=== PATIENT | male | born 1965 | race Asian ===

== ENCOUNTER → 2017-02-12 | Outpatient (CLI) | payer OTHER ==
[~2017-02-12] MED LIST: OMNIPAQUE 350 MG/ML, 100ML BOTTLE ONE
== END | disposition home or self-care (01) ==
LOC: CFH 11:02
PROVIDERS: ATTEND Internal Medicine
DX: C20 Malignant neoplasm of rectum (principal); N28.1 Cyst of kidney, acquired; K62.89 Other specified diseases of anus and rectum
CPT/HCPCS: 71260; 74177; Q9967

== ENCOUNTER 2017-08-16 13:23 | Inpatient (IN) | payer OTHER ==
[~2017-08-16] VITALS: Ht 167.6 cm; Wt 74.6 kg
[2017-08-16] MEDS ORDERED: SODIUM CHLORIDE 0.9% 1,000 ML IV ONE ×2 (13:37→15:46)
[2017-08-16] MEDS ORDERED: SODIUM CHLORIDE FLUSH 10ML SYR IVF ONE (14:00)
[2017-08-16] MEDS ORDERED: HYDROmorphone 1 MG/ML, 1ML IVPush PRN ×2 (14:00→16:00)
[2017-08-16] MEDS ORDERED: SODIUM CHLORIDE 0.9% 1,000ML IVBOLUS ONE (14:00)
[2017-08-16] MEDS ORDERED: ONDANSETRON 2MG/ML, 2ML IVPush ONE (14:00)
[2017-08-16] MEDS ORDERED: HYDROmorphone 1 MG/ML, 1ML ONE (14:09)
[2017-08-16] MEDS ORDERED: ONDANSETRON 2MG/ML, 2ML ONE (14:09)
[2017-08-16 15:00] LABS: HEMATOCRIT 29.8 % (39.2-51.8); HEMOGLOBIN 9.9 g/dL (13.7-18.0)
[2017-08-16 15:09] LABS: BLOOD UREA NITROGEN 8 mg/dL (7-18)
[2017-08-16 15:13] LABS: ASPARTATE AMINO TRANSFERASE 47 U/L (15-37)
[2017-08-16] MEDS ORDERED: PANTOPRAZOLE 80 MG in SODIUM CHLORIDE 0.9% 50 ML IVPB ONE (15:21)
[2017-08-16] MEDS: PANTOPRAZOLE 80 MG in SODIUM CHLORIDE 0.9% 100 ML IV SCH ×3 (15:35→17:11)
[2017-08-16] MEDS ORDERED: morphine SULFATE 10 MG/ML, 1ML IVPush PRN (16:00)
[2017-08-16] MEDS ORDERED: SODIUM CHLORIDE FLUSH 10ML SYR IVF PRN (16:00)
[2017-08-16] MEDS ORDERED: ONDANSETRON 2MG/ML, 2ML IVPush PRN ×2 (16:00)
[2017-08-16] MEDS: NS + 20MEQ KCL 1,000 ML IV SCH (16:26)
[2017-08-16 17:08] VITALS: BP 123/73
[2017-08-16] MEDS: HYDROmorphone 2 MG/ML, 1ML IVPush PRN ×2 (18:16→21:46)
[2017-08-16] MEDS ORDERED: OXYC1TAB7 PO (18:43)
[2017-08-16] MEDS ORDERED: SENN8.6T12 PO (18:45)
[2017-08-16 20:30] VITALS: BP_SYST 102; BP_SYST 121; BP_DIAS 60; BP_DIAS 72
[2017-08-16 23:35] LABS: HEMATOCRIT 28.1 % (39.2-51.8); HEMOGLOBIN 9.4 g/dL (13.7-18.0); WHITE BLOOD COUNT 7.1 x10^3/uL (3.4-10)
[2017-08-17] MEDS: HYDROmorphone 2 MG/ML, 1ML IVPush PRN ×4 (01:20→14:03)
[2017-08-17] MEDS: PANTOPRAZOLE 80 MG in SODIUM CHLORIDE 0.9% 100 ML IV SCH ×3 (01:22→11:54)
[2017-08-17] MEDS: NS + 20MEQ KCL 1,000 ML IV SCH ×4 (02:05→22:18)
[2017-08-17 02:09] VITALS: BP 116/73
[2017-08-17 05:10] LABS: HEMATOCRIT 28.5 % (39.2-51.8); HEMOGLOBIN 9.6 g/dL (13.7-18.0); WHITE BLOOD COUNT 6.6 x10^3/uL (3.4-10)
[2017-08-17 05:18] LABS: BLOOD UREA NITROGEN 7 mg/dL (7-18)
[2017-08-17 06:37] VITALS: BP 117/75
[2017-08-17 12:57] VITALS: BP 122/77
[2017-08-17] MEDS ORDERED: POLYETHYLENE GLYCOL 17 GM PACKET NG ONE (16:30)
[2017-08-17] MEDS ORDERED: POLYETHYLENE GLYCOL 17 GM PACKET PO ONE (17:00)
[2017-08-17] MEDS: SENNA/DOCUSATE TABLET PO SCH (17:09)
[2017-08-17] MEDS: MAGNESIUM HYDROXIDE 8%, 30ML UDC PO PRN (17:09)
[2017-08-17 20:00] VITALS: BP 129/72
[2017-08-18] MEDS: HYDROmorphone 2 MG/ML, 1ML IVPush PRN ×6 (01:11→21:45)
[2017-08-18 02:00] VITALS: BP 135/77
[2017-08-18 05:44] LABS: HEMOGLOBIN 10.5 g/dL (13.7-18.0)
[2017-08-18 07:58] VITALS: BP 134/70
[2017-08-18] MEDS: OMEPRAZOLE 20 MG CAPSULE.DR PO SCH (08:31)
[2017-08-18] MEDS: SENNA/DOCUSATE TABLET PO SCH (08:31)
[2017-08-18 13:19] VITALS: BP 139/77
[2017-08-18] MEDS: MAGNESIUM HYDROXIDE 8%, 30ML UDC PO PRN (17:38)
[2017-08-18] MEDS: NS + 20MEQ KCL 1,000 ML IV SCH (19:03)
[2017-08-18 20:53] VITALS: BP 129/72
[2017-08-19] MEDS: HYDROmorphone 2 MG/ML, 1ML IVPush PRN ×4 (00:50→11:41)
[2017-08-19 03:45] VITALS: BP 132/79
[2017-08-19] MEDS ORDERED: POLYETHYLENE GLYCOL 17 GM PACKET PO ONE (08:00)
[2017-08-19 09:51] VITALS: BP 128/79
[2017-08-19] MEDS: OMEPRAZOLE 20 MG CAPSULE.DR PO SCH (10:05)
[2017-08-19] MEDS: morphine SULFATE 60 MG TABLET.ER PO SCH ×2 (10:06→21:30)
[2017-08-19] MEDS: SENNA/DOCUSATE TABLET PO SCH (10:06)
[2017-08-19] MEDS: NS + 20MEQ KCL 1,000 ML IV SCH ×2 (10:07→23:38)
[2017-08-19 12:46] LABS: HEMOGLOBIN 10.3 g/dL (13.7-18.0); WHITE BLOOD COUNT 8.3 x10^3/uL (3.4-10)
[2017-08-19 15:03] VITALS: BP 145/79
[2017-08-19] MEDS: DEXAMETHASONE 1 MG TABLET PO SCH (17:51)
[2017-08-19 20:00] VITALS: BP 138/81
[2017-08-20 00:40] VITALS: BP 128/77
[2017-08-20] MEDS: morphine SULFATE 15 MG TAB.IR PO PRN ×3 (01:50→13:10)
[2017-08-20 05:54] LABS: HEMATOCRIT 30.7 % (39.2-51.8); HEMOGLOBIN 10.2 g/dL (13.7-18.0); WHITE BLOOD COUNT 8.4 x10^3/uL (3.4-10)
[2017-08-20 06:12] LABS: BLOOD UREA NITROGEN 5 mg/dL (7-18)
[2017-08-20] MEDS ORDERED: morphine SULFATE 15 MG TAB.IR PO PRN (06:30)
[2017-08-20] MEDS ORDERED: LIDOCAINE 2%, 20ML ONE (07:50)
[2017-08-20 07:52] VITALS: BP 135/80
[2017-08-20] MEDS ORDERED: FENTANYL PF 100 MCG/2ML ONE (07:55)
[2017-08-20] MEDS ORDERED: NALOXONE 1 MG/ML, 2ML ONE (07:55)
[2017-08-20] MEDS ORDERED: FLUMAZENIL 0.1 MG/1 ML, 5ML ONE (07:55)
[2017-08-20] MEDS ORDERED: MIDAZOLAM 1 MG/ML, 5ML ONE (07:55)
[2017-08-20] MEDS ORDERED: CEFAZOLIN PMX 1GM/50ML 50 ML ONE (08:34)
[2017-08-20] MEDS: morphine SULFATE 60 MG TABLET.ER PO SCH ×2 (11:11→23:11)
[2017-08-20] MEDS: DEXAMETHASONE 1 MG TABLET PO SCH ×2 (11:11→17:32)
[2017-08-20] MEDS: OMEPRAZOLE 20 MG CAPSULE.DR PO SCH (11:12)
[2017-08-20] MEDS: SENNA/DOCUSATE TABLET PO SCH (11:12)
[2017-08-20] MEDS: POLYETHYLENE GLYCOL 17 GM PACKET PO SCH ×2 (11:12→20:48)
[2017-08-20] MEDS ORDERED: SODIUM CHLORIDE 0.9% 1,000 ML IV SCH ×2 (12:00→14:00)
[2017-08-20 14:16] VITALS: BP 118/78
[2017-08-20 17:12] LABS: BLOOD UREA NITROGEN 7 mg/dL (7-18)
[2017-08-20 19:25] VITALS: BP 121/72
[2017-08-20] MEDS: NS + 20MEQ KCL 1,000 ML IV SCH (20:48)
[2017-08-21] MEDS: morphine SULFATE 15 MG TAB.IR PO PRN ×2 (01:43→05:03)
[2017-08-21 01:45] VITALS: BP 117/75
[2017-08-21] MEDS: OMEPRAZOLE 20 MG CAPSULE.DR PO SCH (08:15)
[2017-08-21] MEDS: DEXAMETHASONE 1 MG TABLET PO SCH ×2 (08:15→17:00)
[2017-08-21] MEDS: POLYETHYLENE GLYCOL 17 GM PACKET PO SCH (08:25)
[2017-08-21] MEDS: SENNA/DOCUSATE TABLET PO SCH (08:25)
[2017-08-21 09:28] VITALS: BP 124/72
[2017-08-21] MEDS: NS + 20MEQ KCL 1,000 ML IV SCH (09:48)
[2017-08-21] MEDS: morphine SULFATE 60 MG TABLET.ER PO SCH (11:11)
[2017-08-21] MEDS ORDERED: MAGN400O7 PO (13:21)
[2017-08-21] MEDS ORDERED: MORP60TA PO (13:21)
[2017-08-21] MEDS ORDERED: OMEP-110 PO (13:21)
[2017-08-21] MEDS ORDERED: DEXA1TAB5 PO (13:21)
[2017-08-21] MEDS ORDERED: POLY17PO5 PO (13:21)
[2017-08-21] MEDS ORDERED: SENN1TAB7 PO (13:21)
[2017-08-21] MEDS ORDERED: MORP15TA PO (13:21)
[2017-08-21 13:38] VITALS: BP 116/64
[2017-08-21] MEDS ORDERED: morphine SULFATE 15 MG TAB.IR PO PRN (15:30)
== END 2017-08-21 22:21 | disposition home or self-care (01) | DRG 948 ==
LOC: ED 13:26 → EDIP 15:35 → 4WST 16:44
PROVIDERS: ADMIT Family Medicine; ATTEND Family Medicine
PROC: 02HV33Z Insertion of Infusion Device into Superior Vena Cava, Percutaneous Approach (ICD-10-PCS; principal; 2017-08-20)
PROC: B5181ZA Fluoroscopy of Superior Vena Cava using Low Osmolar Contrast, Guidance (ICD-10-PCS; 2017-08-20)
DX: G89.3 Neoplasm related pain (acute) (chronic) (principal); C77.5 Secondary and unspecified malignant neoplasm of intrapelvic lymph nodes; C79.51 Secondary malignant neoplasm of bone; E22.2 Syndrome of inappropriate secretion of antidiuretic hormone; D62 Acute posthemorrhagic anemia; C20 Malignant neoplasm of rectum; D63.8 Anemia in other chronic diseases classified elsewhere; G47.00 Insomnia, unspecified; K21.9 Gastro-esophageal reflux disease without esophagitis; K59.00 Constipation, unspecified; Z51.5 Encounter for palliative care; Z93.3 Colostomy status
CPT/HCPCS: 36415; 36561; 74022; 76937; 77001; 80048; 80053; 81003; 83935; 84300; 85025; 86850; 86900; 96374; 99156; 99157; C1894; J0690; J1170; J2250; J2405; J3010; J3480; J3490; C1788; C9113; J1642; J2270; J2310; J7030

== ENCOUNTER → 2017-08-16 | Outpatient (CLI) | payer OTHER ==
[~2017-08-16] MED LIST changes: -OMNIPAQUE 350 MG/ML, 100ML BOTTLE ONE; +OXYC1TAB7 PO; +SENN8.6T12 PO
== END | disposition home or self-care (01) ==
LOC: RAD 09:07
PROVIDERS: ATTEND Internal Medicine
DX: R59.0 Localized enlarged lymph nodes (principal); J98.11 Atelectasis; N32.9 Bladder disorder, unspecified; K59.00 Constipation, unspecified; N28.1 Cyst of kidney, acquired; K82.0 Obstruction of gallbladder; M89.8X8 Other specified disorders of bone, other site; C20 Malignant neoplasm of rectum
CPT/HCPCS: 71260; 74177

== ENCOUNTER → 2017-08-16 | Outpatient (CLI) | payer OTHER ==
[~2017-08-16] MED LIST changes: +CIPR500T87 PO; +DEXA1TAB5 PO; +LACT10SO28 PO; +LUBI8CAP4 PO; +MAGN400O7 PO; +METR500T8 PO; +MORP15TA PO; +MORP60TA PO; +OMEP-110 PO; +OMNIPAQUE 350 MG/ML, 100ML BOTTLE ONE; +ONDA4TAB13 PO; +POLY17PO5 PO; +SENN1TAB7 PO
== END | disposition home or self-care (01) ==
LOC: RAD 09:06
PROVIDERS: ATTEND Internal Medicine
DX: C79.51 Secondary malignant neoplasm of bone (principal); C20 Malignant neoplasm of rectum
CPT/HCPCS: 78306; A9503; Q9967

== ENCOUNTER 2017-08-26 03:18 | Inpatient (IN) | payer OTHER ==
[~2017-08-26] VITALS: Ht 167.6 cm; Wt 80.0 kg
[~2017-08-26 03:18] MED LIST changes: -CIPR500T87 PO; -LACT10SO28 PO; -LUBI8CAP4 PO; -METR500T8 PO; -OMNIPAQUE 350 MG/ML, 100ML BOTTLE ONE; -ONDA4TAB13 PO
[2017-08-26] MEDS ORDERED: ONDANSETRON 2MG/ML, 2ML IVPush ONE (04:00)
[2017-08-26] MEDS ORDERED: ACETAMINOPHEN 500 MG TABLET PO ONE (04:00)
[2017-08-26] MEDS ORDERED: SODIUM CHLORIDE FLUSH 10ML SYR IVF ONE (04:00)
[2017-08-26] MEDS ORDERED: SODIUM CHLORIDE 0.9% 1,000ML IVBOLUS ONE (04:00)
[2017-08-26] MEDS ORDERED: HYDROmorphone 1 MG/ML, 1ML IVPush PRN (04:00)
[2017-08-26 04:09] LABS: HEMATOCRIT 26.2 % (39.2-51.8); HEMOGLOBIN 8.8 g/dL (13.7-18.0); WHITE BLOOD COUNT 8.3 x10^3/uL (3.4-10)
[2017-08-26 04:14] LABS: ASPARTATE AMINO TRANSFERASE 96 U/L (15-37); BLOOD UREA NITROGEN 7 mg/dL (7-18)
[2017-08-26] MEDS ORDERED: HYDROmorphone 1 MG/ML, 1ML ONE (04:16)
[2017-08-26] MEDS ORDERED: ONDANSETRON 2MG/ML, 2ML ONE (04:16)
[2017-08-26] MEDS ORDERED: ACETAMINOPHEN 500 MG TABLET ONE (04:16)
[2017-08-26 04:45] LABS: RAPID INFLUENZA A Negative (Negative); RAPID INFLUENZA B Negative (Negative)
[2017-08-26] MEDS ORDERED: OMNIPAQUE 350 MG/ML, 100ML BOTTLE ONE (05:19)
[2017-08-26] MEDS ORDERED: MAGNESIUM CITRATE 300ML ORAL SOL PO ONE (07:00)
[2017-08-26] MEDS ORDERED: MAGNESIUM HYDROXIDE 8%, 30ML UDC PO PRN (07:30)
[2017-08-26] MEDS ORDERED: ONDANSETRON ODT 4 MG PO PRN (07:30)
[2017-08-26] MEDS: CIPROFLOXACIN/PMX 400MG/200ML 200 ML IV SCH ×2 (08:31→19:54)
[2017-08-26] MEDS: SODIUM CHLORIDE 0.9% 1,000 ML IV SCH ×2 (08:31→16:15)
[2017-08-26 08:50] VITALS: BP 123/73
[2017-08-26 09:44] LABS: OCCBLD OBC PASS
[2017-08-26] MEDS: morphine SULFATE 15 MG TAB.IR PO PRN (10:24)
[2017-08-26] MEDS: DEXAMETHASONE 1 MG TABLET PO SCH ×2 (10:25→17:00)
[2017-08-26] MEDS: OMEPRAZOLE 20 MG CAPSULE.DR PO SCH (10:26)
[2017-08-26] MEDS: POLYETHYLENE GLYCOL 17 GM PACKET PO SCH ×2 (10:26→20:01)
[2017-08-26] MEDS: SENNA/DOCUSATE TABLET PO SCH (10:27)
[2017-08-26] MEDS: METRONIDAZOLE PMX 500MG/100ML 100 ML IV SCH ×3 (10:31→21:30)
[2017-08-26] MEDS: morphine SULFATE 60 MG TABLET.ER PO SCH ×2 (13:13→23:48)
[2017-08-26 13:37] VITALS: BP 113/69
[2017-08-26] MEDS ORDERED: MORPHINE SULFATE 4 MG/ML, 1ML ONE ×4 (15:45→21:36)
[2017-08-26] MEDS: morphine SULFATE 10 MG/ML, 1ML IVPush PRN ×2 (16:16→21:40)
[2017-08-26 19:20] VITALS: BP 118/71
[2017-08-27] MEDS: SODIUM CHLORIDE 0.9% 1,000 ML IV SCH ×2 (01:38→12:11)
[2017-08-27 01:41] VITALS: BP 109/69
[2017-08-27] MEDS ORDERED: MORPHINE SULFATE 4 MG/ML, 1ML ONE ×2 (03:03→08:20)
[2017-08-27] MEDS: morphine SULFATE 10 MG/ML, 1ML IVPush PRN ×3 (03:08→17:05)
[2017-08-27] MEDS: METRONIDAZOLE PMX 500MG/100ML 100 ML IV SCH ×3 (03:10→18:04)
[2017-08-27 05:15] LABS: HEMATOCRIT 24.4 % (39.2-51.8); HEMOGLOBIN 8.2 g/dL (13.7-18.0)
[2017-08-27 05:26] LABS: BLOOD UREA NITROGEN 7 mg/dL (7-18)
[2017-08-27 05:31] LABS: ASPARTATE AMINO TRANSFERASE 39 U/L (15-37)
[2017-08-27] MEDS: CIPROFLOXACIN/PMX 400MG/200ML 200 ML IV SCH ×2 (07:13→19:48)
[2017-08-27 08:01] VITALS: BP 128/68
[2017-08-27] MEDS: POLYETHYLENE GLYCOL 17 GM PACKET PO SCH ×2 (08:25→19:48)
[2017-08-27] MEDS: DEXAMETHASONE 1 MG TABLET PO SCH ×2 (08:25→17:05)
[2017-08-27] MEDS: SENNA/DOCUSATE TABLET PO SCH (08:25)
[2017-08-27] MEDS: OMEPRAZOLE 20 MG CAPSULE.DR PO SCH (08:25)
[2017-08-27] MEDS: morphine SULFATE 15 MG TAB.IR PO PRN ×2 (09:49→21:21)
[2017-08-27] MEDS: morphine SULFATE 60 MG TABLET.ER PO SCH (12:11)
[2017-08-27] MEDS ORDERED: VANCOMYCIN PER PHARMACY MC PRN (13:00)
[2017-08-27] MEDS ORDERED: PHARMACOKINETIC MONITORING MC PRN (13:30)
[2017-08-27] MEDS: HEPARIN 5,000 UNITS/ML, 1ML SQ SCH ×2 (13:47→19:48)
[2017-08-27] MEDS: VANCOMYCIN 1,500 MG in SODIUM CHLORIDE 0.9% 250 ML IV SCH (13:47)
[2017-08-27 14:22] VITALS: BP 115/70
[2017-08-27 21:10] VITALS: BP 111/66
[2017-08-28] MEDS: METRONIDAZOLE PMX 500MG/100ML 100 ML IV SCH ×5 (00:15→23:31)
[2017-08-28] MEDS: SODIUM CHLORIDE 0.9% 1,000 ML IV SCH ×2 (00:15→12:19)
[2017-08-28] MEDS: morphine SULFATE 60 MG TABLET.ER PO SCH ×3 (00:15→23:30)
[2017-08-28 01:14] VITALS: BP 108/62
[2017-08-28] MEDS: morphine SULFATE 15 MG TAB.IR PO PRN ×3 (01:25→20:05)
[2017-08-28] MEDS: VANCOMYCIN 1,500 MG in SODIUM CHLORIDE 0.9% 250 ML IV SCH ×2 (01:25→12:19)
[2017-08-28] MEDS: HEPARIN 5,000 UNITS/ML, 1ML SQ SCH ×3 (05:47→20:05)
[2017-08-28 06:17] LABS: HEMATOCRIT 23.3 % (39.2-51.8); HEMOGLOBIN 7.7 g/dL (13.7-18.0); WHITE BLOOD COUNT 7.1 x10^3/uL (3.4-10)
[2017-08-28 06:53] VITALS: BP 119/68
[2017-08-28 07:00] LABS: ASPARTATE AMINO TRANSFERASE 20 U/L (15-37); BLOOD UREA NITROGEN 5 mg/dL (7-18)
[2017-08-28] MEDS: POLYETHYLENE GLYCOL 17 GM PACKET PO SCH ×2 (08:17→20:04)
[2017-08-28] MEDS: OMEPRAZOLE 20 MG CAPSULE.DR PO SCH (08:18)
[2017-08-28] MEDS: DEXAMETHASONE 1 MG TABLET PO SCH ×2 (08:18→17:53)
[2017-08-28] MEDS: SENNA/DOCUSATE TABLET PO SCH (08:18)
[2017-08-28] MEDS: CIPROFLOXACIN/PMX 400MG/200ML 200 ML IV SCH ×2 (08:18→20:04)
[2017-08-28 11:08] LABS: FERRITIN 3626.7 ng/mL (26-388)
[2017-08-28] MEDS: SODIUM CHLORIDE 1 GM TABLET PO SCH ×2 (12:19→20:04)
[2017-08-28 14:05] VITALS: BP 117/71
[2017-08-28] MEDS: FERROUS SULFATE 325 MG TABLET PO SCH (17:52)
[2017-08-28 19:01] VITALS: BP 117/68
[2017-08-29] MEDS: VANCOMYCIN 1,500 MG in SODIUM CHLORIDE 0.9% 250 ML IV SCH (01:12)
[2017-08-29] MEDS: SODIUM CHLORIDE 0.9% 1,000 ML IV SCH ×3 (01:12→18:43)
[2017-08-29 02:46] VITALS: BP 134/79
[2017-08-29] MEDS: morphine SULFATE 15 MG TAB.IR PO PRN ×2 (02:47→22:09)
[2017-08-29] MEDS ORDERED: PROMETHAZINE 25 MG/ML, 1ML ONE (04:51)
[2017-08-29] MEDS ORDERED: PROMETHAZINE 25 MG/ML, 1ML IM PRN (05:00)
[2017-08-29] MEDS: HEPARIN 5,000 UNITS/ML, 1ML SQ SCH ×3 (06:02→20:05)
[2017-08-29] MEDS: METRONIDAZOLE PMX 500MG/100ML 100 ML IV SCH ×3 (06:02→18:43)
[2017-08-29 06:13] LABS: HEMOGLOBIN 7.9 g/dL (13.7-18.0); WHITE BLOOD COUNT 8.2 x10^3/uL (3.4-10)
[2017-08-29] MEDS: OMEPRAZOLE 20 MG CAPSULE.DR PO SCH (07:53)
[2017-08-29] MEDS: DEXAMETHASONE 1 MG TABLET PO SCH ×2 (07:53→16:58)
[2017-08-29] MEDS ORDERED: MAGNESIUM CITRATE 300ML ORAL SOL PO ONE (08:00)
[2017-08-29 08:12] VITALS: BP 137/81
[2017-08-29] MEDS: CIPROFLOXACIN/PMX 400MG/200ML 200 ML IV SCH ×2 (08:24→20:04)
[2017-08-29] MEDS: FERROUS SULFATE 325 MG TABLET PO SCH ×2 (08:24→16:58)
[2017-08-29] MEDS: SENNA/DOCUSATE TABLET PO SCH (08:33)
[2017-08-29] MEDS: SODIUM CHLORIDE 1 GM TABLET PO SCH ×2 (08:33→20:04)
[2017-08-29] MEDS: POLYETHYLENE GLYCOL 17 GM PACKET PO SCH ×2 (08:33→20:05)
[2017-08-29] MEDS: morphine SULFATE 10 MG/ML, 1ML IVPush PRN ×2 (08:37→18:43)
[2017-08-29] MEDS: morphine SULFATE 60 MG TABLET.ER PO SCH (12:00)
[2017-08-29 13:53] VITALS: BP 142/83
[2017-08-29] MEDS ORDERED: ROCURONIUM 10 MG/ML,10ML ONE (16:02)
[2017-08-29] MEDS ORDERED: PROPOFOL 10 MG/ML, 20ML ONE (16:02)
[2017-08-29] MEDS ORDERED: SUCCINYLCHOLINE 20 MG/ML, 10ML ONE (16:02)
[2017-08-29] MEDS ORDERED: MIDAZOLAM 1 MG/ML, 2ML ONE (16:03)
[2017-08-29] MEDS ORDERED: FENTANYL PF 100 MCG/2ML ONE (16:03)
[2017-08-29] MEDS ORDERED: ONDANSETRON 2MG/ML, 2ML ONE (16:39)
[2017-08-29] MEDS ORDERED: EPHEDRINE 50 MG/ML, 1ML IVPush PRN (17:00)
[2017-08-29] MEDS ORDERED: HYDROmorphone 1 MG/ML, 1ML IV PRN (17:00)
[2017-08-29] MEDS ORDERED: METOPROLOL 1 MG/ML, 5ML IV PRN (17:00)
[2017-08-29] MEDS ORDERED: hydrALAzine 20 MG/ML, 1ML IV PRN (17:00)
[2017-08-29] MEDS ORDERED: OXYcodone 5 MG/5 ML ORAL.SOL UDC PO PRN (17:00)
[2017-08-29] MEDS ORDERED: ONDANSETRON 2MG/ML, 2ML IVPush PRN (17:00)
[2017-08-29] MEDS ORDERED: OMNIPAQUE 350 MG/ML, 50 ML BOTTLE ONE (17:00)
[2017-08-29] MEDS ORDERED: ACETAMINOPHEN 325 MG TABLET PO PRN (17:00)
[2017-08-29] MEDS ORDERED: HYDROcodone/APAP 7.5-325MG/15ML UDC PO PRN (17:00)
[2017-08-29] MEDS ORDERED: MEPERIDINE/PF 25MG/0.5ML IVPush PRN (17:00)
[2017-08-29] MEDS ORDERED: METOCLOPRAMIDE 5 MG/ML, 2ML IV PRN (17:00)
[2017-08-29] MEDS ORDERED: ALBUTEROL SULFATE 2.5 MG/3 ML NPPB PRN (17:00)
[2017-08-29] MEDS ORDERED: LABETALOL 5MG/ML, 20ML IV PRN (17:00)
[2017-08-29] MEDS ORDERED: FENTANYL PF 100 MCG/2ML IV PRN (17:00)
[2017-08-29 18:30] VITALS: BP 120/69
[2017-08-30] MEDS: METRONIDAZOLE PMX 500MG/100ML 100 ML IV SCH ×3 (00:06→12:16)
[2017-08-30] MEDS: morphine SULFATE 60 MG TABLET.ER PO SCH ×2 (00:06→12:16)
[2017-08-30] MEDS: SODIUM CHLORIDE 0.9% 1,000 ML IV SCH ×2 (00:06→12:16)
[2017-08-30 02:19] VITALS: BP 130/74
[2017-08-30] MEDS: HEPARIN 5,000 UNITS/ML, 1ML SQ SCH ×2 (05:00→13:28)
[2017-08-30 05:16] LABS: OCCBLD OBC PASS
[2017-08-30] MEDS ORDERED: METHYLNALTREXONE 12 MG/0.6 ML SQ SCH (06:00)
[2017-08-30 06:35] LABS: BLOOD UREA NITROGEN 5 mg/dL (7-18)
[2017-08-30 06:40] LABS: ASPARTATE AMINO TRANSFERASE 29 U/L (15-37)
[2017-08-30 07:13] VITALS: BP 131/78
[2017-08-30] MEDS: FERROUS SULFATE 325 MG TABLET PO SCH ×2 (07:24→17:32)
[2017-08-30] MEDS: morphine SULFATE 10 MG/ML, 1ML IVPush PRN (07:24)
[2017-08-30] MEDS: DEXAMETHASONE 1 MG TABLET PO SCH ×2 (07:24→17:32)
[2017-08-30] MEDS: OMEPRAZOLE 20 MG CAPSULE.DR PO SCH (07:25)
[2017-08-30] MEDS: SENNA/DOCUSATE TABLET PO SCH (08:44)
[2017-08-30] MEDS: POLYETHYLENE GLYCOL 17 GM PACKET PO SCH (08:44)
[2017-08-30] MEDS: SODIUM CHLORIDE 1 GM TABLET PO SCH (08:44)
[2017-08-30] MEDS: CIPROFLOXACIN/PMX 400MG/200ML 200 ML IV SCH (08:45)
[2017-08-30] MEDS ORDERED: LACT10SO28 PO (13:29)
[2017-08-30] MEDS ORDERED: ONDA4TAB13 PO (13:29)
[2017-08-30] MEDS ORDERED: LUBI8CAP4 PO (13:29)
[2017-08-30] MEDS ORDERED: METR500T8 PO (13:29)
[2017-08-30] MEDS ORDERED: CIPR500T87 PO (13:29)
[2017-08-30 14:30] VITALS: BP 115/75
[2017-08-30] MEDS: morphine SULFATE 15 MG TAB.IR PO PRN (17:32)
== END 2017-08-30 18:28 | disposition home or self-care (01) | DRG 871 ==
LOC: ED 04:39 → EDIP 05:54 → 3NW 07:25
PROVIDERS: ADMIT Family Medicine; ATTEND Family Medicine
PROC: BF101ZZ Fluoroscopy of Bile Ducts using Low Osmolar Contrast (ICD-10-PCS; principal; 2017-08-26)
PROC: 0DJ08ZZ Inspection of Upper Intestinal Tract, Via Natural or Artificial Opening Endoscopic (ICD-10-PCS; 2017-08-26)
DX: A41.9 Sepsis, unspecified organism (principal); K83.1 Obstruction of bile duct; K83.0 Cholangitis; E22.2 Syndrome of inappropriate secretion of antidiuretic hormone; E46 Unspecified protein-calorie malnutrition; N13.30 Unspecified hydronephrosis; D56.0 Alpha thalassemia; D50.9 Iron deficiency anemia, unspecified; Z68.28 Body mass index [BMI] 28.0-28.9, adult; E86.0 Dehydration; G89.3 Neoplasm related pain (acute) (chronic); K21.9 Gastro-esophageal reflux disease without esophagitis; K59.03 Drug induced constipation; T40.605A Adverse effect of unspecified narcotics, initial encounter; Z51.5 Encounter for palliative care; Z85.048 Personal history of other malignant neoplasm of rectum, rectosigmoid junction, and anus; Z92.21 Personal history of antineoplastic chemotherapy; Z93.3 Colostomy status; Z85.830 Personal history of malignant neoplasm of bone
CPT/HCPCS: 36415; 71010; 74000; 74177; 74181; 74328; 76705; 80053; 80076; 80307; 81001; 81003; 82150; 82247; 82248; 82272; 82607; 82728; 82746; 83010; 83540; 83550; 83605; 83690; 83935; 84145; 85025; 85610; 86704; 86706; 86708; 86803; 87040; 87086; 87340; 87400; 96361; 96374; 96375; J0744; J1170; J1644; J2250; J2405; J2550; J2704; J3010; J3370; Q0162; Q9967; J0330; J2270; J7030; J7050

== ENCOUNTER 2017-09-07 13:00 | Inpatient (IN) | payer OTHER ==
[~2017-09-07] VITALS: Ht 167.6 cm; Wt 81.6 kg
[~2017-09-07 13:00] MED LIST changes: +CIPR500T87 PO; +LACT10SO28 PO; +LUBI8CAP4 PO; +METR500T8 PO; +ONDA4TAB13 PO
[2017-09-07] MEDS: HYDROmorphone 1 MG/ML, 1ML IVPush PRN ×2 (13:00→15:44)
[2017-09-07] MEDS ORDERED: SODIUM CHLORIDE FLUSH 10ML SYR IVF ONE (13:30)
[2017-09-07] MEDS ORDERED: SODIUM CHLORIDE 0.9% 1,000ML IVBOLUS ONE (13:30)
[2017-09-07 14:32] LABS: PATH.CAST-FLAG NOT PRESENT; SPERM-FLAG NOT PRESENT; SRC-FLAG NOT PRESENT; XTAL-FLAG NOT PRESENT; YLC-FLAG NOT PRESENT
[2017-09-07] MEDS ORDERED: HYDROmorphone 2 MG/ML, 1ML ONE ×3 (14:35→20:21)
[2017-09-07 14:51] LABS: ASPARTATE AMINO TRANSFERASE 55 U/L (15-37); BLOOD UREA NITROGEN 8 mg/dL (7-18)
[2017-09-07 14:53] LABS: HEMATOCRIT 27.1 % (39.2-51.8); HEMOGLOBIN 8.8 g/dL (13.7-18.0); WHITE BLOOD COUNT 8.5 x10^3/uL (3.4-10)
[2017-09-07] MEDS ORDERED: ONDANSETRON 2MG/ML, 2ML IVPush ONE (15:00)
[2017-09-07] MEDS ORDERED: ONDANSETRON 2MG/ML, 2ML ONE (15:26)
[2017-09-07 15:29] LABS: DIFF TOTAL CELLS COUNTED 100 CELL DIFF
[2017-09-07 15:33] LABS: ANISOCYTOSIS 2+
[2017-09-07 15:34] LABS: POLYCHROMASIA 1+
[2017-09-07 15:35] LABS: VERIFY COUNTS? YES
[2017-09-07 15:37] LABS: MICROCYTOSIS 2+
[2017-09-07 15:39] LABS: LARGE PLATELETS 1+; SMALL PLATELETS 2+
[2017-09-07 15:41] LABS: POIKILOCYTOSIS 1+
[2017-09-07] MEDS ORDERED: SODIUM CHLORIDE 0.9% 1,000 ML IV ONE (16:00)
[2017-09-07] MEDS ORDERED: HYDROmorphone 1 MG/ML, 1ML IV ONE ×2 (18:30→20:30)
[2017-09-07] MEDS: morphine SULFATE 60 MG TABLET.ER PO SCH (20:30)
[2017-09-07] MEDS ORDERED: morphine SULFATE 15 MG TAB.IR PO PRN (20:30)
[2017-09-07] MEDS ORDERED: LACTULOSE 10 GM/15 ML UDC PO PRN (20:30)
[2017-09-07] MEDS ORDERED: ONDANSETRON ODT 4 MG PO PRN (20:30)
[2017-09-07] MEDS: SODIUM CHLORIDE 0.9% 1,000 ML IV SCH (21:13)
[2017-09-07] MEDS: LUBIPROSTONE 8 MCG CAPSULE PO SCH (21:14)
[2017-09-07] MEDS: POLYETHYLENE GLYCOL 17 GM PACKET PO SCH (21:15)
[2017-09-07] MEDS ORDERED: ENALAPRILAT 1.25 MG/ML, 2ML IVPush PRN (21:30)
[2017-09-07] MEDS ORDERED: METHYLNALTREXONE 12 MG/0.6 ML SQ ONE (21:30)
[2017-09-07] MEDS ORDERED: ACETAMINOPHEN 325 MG TABLET ONE (21:30)
[2017-09-07] MEDS: ACETAMINOPHEN 325 MG TABLET PO PRN (21:34)
[2017-09-07] MEDS ORDERED: morphine SULFATE 60 MG TABLET.ER PO ONE (23:00)
[2017-09-07] MEDS: ENOXAPARIN 40 MG/0.4 ML SQ SCH (23:27)
[2017-09-07] MEDS: HYDROcodone/APAP 5/325 TABLET PO PRN (23:28)
[2017-09-07] MEDS: LACTULOSE 10 GM/15 ML UDC PO SCH (23:30)
[2017-09-08] VITALS (8 sets, daily range): BP systolic 78–122; BP diastolic 51–78
[2017-09-08] MEDS: METRONIDAZOLE PMX 500MG/100ML 100 ML IV SCH ×5 (00:02→23:43)
[2017-09-08] MEDS ORDERED: SODIUM CHLORIDE 0.9%, 500ML IVBOLUS ONE (01:00)
[2017-09-08] MEDS: CIPROFLOXACIN/PMX 400MG/200ML 200 ML IV SCH ×2 (01:24→15:08)
[2017-09-08] MEDS: SODIUM CHLORIDE 0.9% 1,000 ML IV SCH ×3 (02:42→21:03)
[2017-09-08 04:34] LABS: ASPARTATE AMINO TRANSFERASE 48 U/L (15-37); BLOOD UREA NITROGEN 17 mg/dL (7-18)
[2017-09-08 04:58] LABS: HEMATOCRIT 23.4 % (39.2-51.8); HEMOGLOBIN 7.7 g/dL (13.7-18.0); WHITE BLOOD COUNT 6.4 x10^3/uL (3.4-10)
[2017-09-08] MEDS: morphine SULFATE 15 MG TAB.IR PO PRN ×3 (05:13→18:00)
[2017-09-08 05:50] LABS: DIFF TOTAL CELLS COUNTED 100 CELL DIFF
[2017-09-08 05:52] LABS: ANISOCYTOSIS 2+; VERIFY COUNTS? YES
[2017-09-08 05:53] LABS: MICROCYTOSIS 2+; POIKILOCYTOSIS 1+; POLYCHROMASIA 1+
[2017-09-08 05:56] LABS: SMALL PLATELETS 1+
[2017-09-08] MEDS: morphine SULFATE 60 MG TABLET.ER PO SCH ×2 (08:30→21:02)
[2017-09-08] MEDS ORDERED: MAGNESIUM CITRATE 300ML ORAL SOL PO ONE (08:30)
[2017-09-08] MEDS: POLYETHYLENE GLYCOL 17 GM PACKET PO SCH ×2 (09:00→21:02)
[2017-09-08] MEDS: DEXAMETHASONE 1 MG TABLET PO SCH ×2 (09:35→17:33)
[2017-09-08] MEDS: OMEPRAZOLE 20 MG CAPSULE.DR PO SCH (09:36)
[2017-09-08] MEDS: SENNA/DOCUSATE TABLET PO SCH (09:36)
[2017-09-08] MEDS: CALCIUM CARBONATE 500 MG TAB.CHEW PO SCH (09:36)
[2017-09-08] MEDS: LUBIPROSTONE 8 MCG CAPSULE PO SCH ×2 (09:36→21:02)
[2017-09-08] MEDS: HYDROcodone/APAP 5/325 TABLET PO PRN (10:58)
[2017-09-08 13:50] LABS: RAPID INFLUENZA A Negative (Negative); RAPID INFLUENZA B Negative (Negative)
[2017-09-08] MEDS: LACTULOSE 10 GM/15 ML UDC PO SCH (15:04)
[2017-09-08] MEDS: VANCOMYCIN 50 MG/ML ORAL SUSP PO SCH ×2 (17:33→21:03)
[2017-09-08] MEDS: ENOXAPARIN 40 MG/0.4 ML SQ SCH (21:03)
[2017-09-09] VITALS (11 sets, daily range): BP systolic 108–121; BP diastolic 61–73
[2017-09-09] MEDS: VANCOMYCIN 50 MG/ML ORAL SUSP PO SCH ×4 (03:57→21:24)
[2017-09-09] MEDS: METRONIDAZOLE PMX 500MG/100ML 100 ML IV SCH ×3 (05:19→21:24)
[2017-09-09] MEDS: SODIUM CHLORIDE 0.9% 1,000 ML IV SCH ×3 (05:19→21:24)
[2017-09-09 05:35] LABS: ASPARTATE AMINO TRANSFERASE 94 U/L (15-37); BLOOD UREA NITROGEN 20 mg/dL (7-18)
[2017-09-09 05:51] LABS: HEMOGLOBIN 7.1 g/dL (13.7-18.0)
[2017-09-09 05:56] LABS: HEMATOCRIT 21.9 % (39.2-51.8)
[2017-09-09] MEDS ORDERED: SODIUM CHLORIDE 0.9% 1,000 ML IV SCH (06:30)
[2017-09-09 08:07] LABS: DIFF TOTAL CELLS COUNTED 100 CELL DIFF
[2017-09-09 08:08] LABS: VERIFY COUNTS? YES
[2017-09-09 08:09] LABS: ANISOCYTOSIS 2+; POLYCHROMASIA 1+
[2017-09-09 08:10] LABS: MICROCYTOSIS 1+; POIKILOCYTOSIS 1+
[2017-09-09] MEDS: LUBIPROSTONE 8 MCG CAPSULE PO SCH (08:30)
[2017-09-09 08:33] LABS: IS PT STATUS REG ER OR PRE ER? NO
[2017-09-09] MEDS: SENNA/DOCUSATE TABLET PO SCH (09:00)
[2017-09-09] MEDS: DEXAMETHASONE 1 MG TABLET PO SCH ×2 (09:55→16:31)
[2017-09-09] MEDS: OMEPRAZOLE 20 MG CAPSULE.DR PO SCH (09:56)
[2017-09-09] MEDS: CALCIUM CARBONATE 500 MG TAB.CHEW PO SCH (09:56)
[2017-09-09] MEDS: morphine SULFATE 60 MG TABLET.ER PO SCH ×2 (09:58→21:23)
[2017-09-09 10:56] LABS: OCCBLD OBC PASS
[2017-09-09] MEDS: ENOXAPARIN 40 MG/0.4 ML SQ SCH (21:24)
[2017-09-10 02:10] VITALS: BP 113/67
[2017-09-10] MEDS: VANCOMYCIN 50 MG/ML ORAL SUSP PO SCH ×4 (03:05→20:35)
[2017-09-10] MEDS: ACETAMINOPHEN 325 MG TABLET PO PRN ×2 (03:05→20:35)
[2017-09-10] MEDS: METRONIDAZOLE PMX 500MG/100ML 100 ML IV SCH ×4 (03:05→20:35)
[2017-09-10 06:41] LABS: ASPARTATE AMINO TRANSFERASE 37 U/L (15-37); BLOOD UREA NITROGEN 10 mg/dL (7-18)
[2017-09-10 06:44] LABS: HEMOGLOBIN 7.3 g/dL (13.7-18.0); WHITE BLOOD COUNT 5.6 x10^3/uL (3.4-10)
[2017-09-10 06:46] LABS: HEMATOCRIT 22.5 % (39.2-51.8)
[2017-09-10 07:24] LABS: DIFF TOTAL CELLS COUNTED 100 CELL DIFF
[2017-09-10 07:28] LABS: VERIFY COUNTS? YES
[2017-09-10 07:30] LABS: ANISOCYTOSIS 2+; MICROCYTOSIS 1+; POIKILOCYTOSIS 1+
[2017-09-10] MEDS: morphine SULFATE 60 MG TABLET.ER PO SCH ×2 (08:30→19:28)
[2017-09-10] MEDS ORDERED: LUBIPROSTONE 8 MCG CAPSULE PO SCH (09:00)
[2017-09-10 09:12] VITALS: BP 109/66
[2017-09-10] MEDS: LACTULOSE 20 GM/30 ML UDC PO SCH (09:14)
[2017-09-10] MEDS: SODIUM CHLORIDE 0.9% 1,000 ML IV SCH ×2 (09:14→20:34)
[2017-09-10] MEDS: DEXAMETHASONE 1 MG TABLET PO SCH ×2 (09:16→16:08)
[2017-09-10] MEDS: OMEPRAZOLE 20 MG CAPSULE.DR PO SCH (09:17)
[2017-09-10] MEDS: SENNA/DOCUSATE TABLET PO SCH (09:17)
[2017-09-10] MEDS: CALCIUM CARBONATE 500 MG TAB.CHEW PO SCH (09:18)
[2017-09-10 15:30] VITALS: BP 108/65
[2017-09-10] MEDS: morphine SULFATE 15 MG TAB.IR PO PRN (16:08)
[2017-09-10 19:46] VITALS: BP 120/69
[2017-09-10] MEDS: POLYETHYLENE GLYCOL 17 GM PACKET PO SCH ×2 (20:34→20:35)
[2017-09-10] MEDS: ENOXAPARIN 40 MG/0.4 ML SQ SCH (20:35)
[2017-09-11 00:48] VITALS: BP 123/79
[2017-09-11] MEDS: VANCOMYCIN 50 MG/ML ORAL SUSP PO SCH ×4 (04:36→23:38)
[2017-09-11] MEDS: METRONIDAZOLE PMX 500MG/100ML 100 ML IV SCH (04:36)
[2017-09-11 05:12] LABS: HEMOGLOBIN 7.6 g/dL (13.7-18.0)
[2017-09-11 05:18] LABS: ASPARTATE AMINO TRANSFERASE 19 U/L (15-37); BLOOD UREA NITROGEN 8 mg/dL (7-18)
[2017-09-11] MEDS: SODIUM CHLORIDE 0.9% 1,000 ML IV SCH (05:39)
[2017-09-11 05:53] LABS: DIFF TOTAL CELLS COUNTED 100 CELL DIFF
[2017-09-11 05:57] LABS: VERIFY COUNTS? YES
[2017-09-11 05:58] LABS: ANISOCYTOSIS 2+; POLYCHROMASIA 1+
[2017-09-11 05:59] LABS: MICROCYTOSIS 1+
[2017-09-11 06:01] LABS: POIKILOCYTOSIS 1+
[2017-09-11 06:22] VITALS: BP 122/77
[2017-09-11] MEDS: morphine SULFATE 60 MG TABLET.ER PO SCH ×2 (08:30→20:30)
[2017-09-11] MEDS: POLYETHYLENE GLYCOL 17 GM PACKET PO SCH ×2 (09:00→21:24)
[2017-09-11] MEDS: DEXAMETHASONE 1 MG TABLET PO SCH ×2 (09:34→17:15)
[2017-09-11] MEDS: metroNIDAZOLE 500 MG TABLET PO SCH ×3 (09:34→23:38)
[2017-09-11] MEDS: LUBIPROSTONE 8 MCG CAPSULE PO SCH ×2 (09:34→17:14)
[2017-09-11] MEDS: SENNA/DOCUSATE TABLET PO SCH (09:34)
[2017-09-11] MEDS: OMEPRAZOLE 20 MG CAPSULE.DR PO SCH (09:35)
[2017-09-11] MEDS: CALCIUM CARBONATE 500 MG TAB.CHEW PO SCH (09:35)
[2017-09-11] MEDS: LACTULOSE 20 GM/30 ML UDC PO SCH (09:35)
[2017-09-11] MEDS: morphine SULFATE 15 MG TAB.IR PO PRN (11:14)
[2017-09-11 11:21] VITALS: BP 135/75
[2017-09-11 14:45] VITALS: BP 124/72
[2017-09-11 15:56] VITALS: BP 123/65
[2017-09-11 20:00] VITALS: BP 122/78
[2017-09-11] MEDS: ENOXAPARIN 40 MG/0.4 ML SQ SCH (21:26)
[2017-09-11] MEDS: ACETAMINOPHEN 325 MG TABLET PO PRN (23:38)
[2017-09-12] VITALS (8 sets, daily range): BP systolic 115–133; BP diastolic 52–79
[2017-09-12] MEDS: morphine SULFATE 15 MG TAB.IR PO PRN ×2 (04:12→15:44)
[2017-09-12] MEDS: VANCOMYCIN 50 MG/ML ORAL SUSP PO SCH ×4 (05:09→23:16)
[2017-09-12] MEDS: metroNIDAZOLE 500 MG TABLET PO SCH ×4 (05:09→23:16)
[2017-09-12 06:05] LABS: WHITE BLOOD COUNT 6.2 x10^3/uL (3.4-10)
[2017-09-12 06:21] LABS: HEMATOCRIT 20.3 % (39.2-51.8)
[2017-09-12 06:37] LABS: DIFF TOTAL CELLS COUNTED 100 CELL DIFF
[2017-09-12 06:40] LABS: VERIFY COUNTS? YES
[2017-09-12 06:41] LABS: ANISOCYTOSIS 2+; MICROCYTOSIS 1+; POIKILOCYTOSIS 1+; POLYCHROMASIA 1+
[2017-09-12] MEDS: morphine SULFATE 60 MG TABLET.ER PO SCH ×2 (08:30→21:07)
[2017-09-12] MEDS: POLYETHYLENE GLYCOL 17 GM PACKET PO SCH ×2 (09:00→21:10)
[2017-09-12] MEDS: CALCIUM CARBONATE 500 MG TAB.CHEW PO SCH (09:45)
[2017-09-12] MEDS: DEXAMETHASONE 1 MG TABLET PO SCH ×2 (09:45→17:20)
[2017-09-12] MEDS: OMEPRAZOLE 20 MG CAPSULE.DR PO SCH (09:45)
[2017-09-12] MEDS: SENNA/DOCUSATE TABLET PO SCH (09:46)
[2017-09-12] MEDS: LUBIPROSTONE 8 MCG CAPSULE PO SCH ×2 (09:46→17:20)
[2017-09-12] MEDS: LACTULOSE 20 GM/30 ML UDC PO SCH (10:04)
[2017-09-12] MEDS: SUCRALFATE 1 GM TABLET PO SCH (17:20)
[2017-09-12] MEDS: FERROUS SULFATE 325 MG TABLET PO SCH (17:20)
[2017-09-12] MEDS: ACETAMINOPHEN 325 MG TABLET PO PRN (21:07)
[2017-09-13 01:29] VITALS: BP 120/70
[2017-09-13] MEDS: morphine SULFATE 15 MG TAB.IR PO PRN ×3 (01:54→17:40)
[2017-09-13] MEDS: metroNIDAZOLE 500 MG TABLET PO SCH ×3 (04:57→16:32)
[2017-09-13] MEDS: VANCOMYCIN 50 MG/ML ORAL SUSP PO SCH (04:58)
[2017-09-13 05:52] LABS: HEMATOCRIT 23.9 % (39.2-51.8); HEMOGLOBIN 7.9 g/dL (13.7-18.0); WHITE BLOOD COUNT 9.5 x10^3/uL (3.4-10)
[2017-09-13 06:16] LABS: DIFF TOTAL CELLS COUNTED 100 CELL DIFF
[2017-09-13 06:19] LABS: ANISOCYTOSIS 2+; MICROCYTOSIS 1+; POIKILOCYTOSIS 1+; POLYCHROMASIA 1+; VERIFY COUNTS? YES
[2017-09-13 07:54] VITALS: BP 121/73
[2017-09-13] MEDS: SUCRALFATE 1 GM TABLET PO SCH ×2 (08:00→16:31)
[2017-09-13] MEDS: DEXAMETHASONE 1 MG TABLET PO SCH ×2 (08:06→16:30)
[2017-09-13] MEDS: FERROUS SULFATE 325 MG TABLET PO SCH ×3 (08:06→16:30)
[2017-09-13] MEDS: morphine SULFATE 60 MG TABLET.ER PO SCH (08:07)
[2017-09-13] MEDS: CALCIUM CARBONATE 500 MG TAB.CHEW PO SCH (08:09)
[2017-09-13] MEDS: LACTULOSE 20 GM/30 ML UDC PO SCH (08:09)
[2017-09-13] MEDS: SENNA/DOCUSATE TABLET PO SCH (08:09)
[2017-09-13] MEDS: POLYETHYLENE GLYCOL 17 GM PACKET PO SCH (08:09)
[2017-09-13] MEDS: LUBIPROSTONE 8 MCG CAPSULE PO SCH ×2 (08:09→16:44)
[2017-09-13] MEDS ORDERED: HEPARIN 5,000 UNITS/ML, 1ML SQ SCH (08:30)
[2017-09-13 13:58] VITALS: BP 122/70
[2017-09-13] MEDS ORDERED: FERR-36 PO (15:17)
[2017-09-13] MEDS ORDERED: SUCR1TAB33 PO (15:17)
[2017-09-13] MEDS ORDERED: VANC1VIA3 PO (15:17)
[2017-09-13] MEDS ORDERED: METR500T PO (15:17)
[2017-09-13] MEDS ORDERED: VANCOMYCIN 50 MG/ML ORAL SUSP PO SCH (15:30)
[2017-09-13] MEDS: ACETAMINOPHEN 325 MG TABLET PO PRN (17:41)
== END 2017-09-13 18:10 | DRG 872 ==
LOC: ED 14:31 → EDIP 20:08 → 5SO 23:06 → 4WST 09-11 16:56
PROVIDERS: ADMIT Family Medicine; ATTEND Family Medicine
PROC: 30233N1 Transfusion of Nonautologous Red Blood Cells into Peripheral Vein, Percutaneous Approach (ICD-10-PCS; principal; 2017-09-09)
DX: A41.9 Sepsis, unspecified organism (principal); K56.609 Unspecified intestinal obstruction, unspecified as to partial versus complete obstruction; E46 Unspecified protein-calorie malnutrition; A04.72 Enterocolitis due to Clostridium difficile, not specified as recurrent; E22.2 Syndrome of inappropriate secretion of antidiuretic hormone; K56.7 Ileus, unspecified; R17 Unspecified jaundice; D50.9 Iron deficiency anemia, unspecified; D63.8 Anemia in other chronic diseases classified elsewhere; E83.41 Hypermagnesemia; E83.51 Hypocalcemia; E86.0 Dehydration; G89.3 Neoplasm related pain (acute) (chronic); K59.03 Drug induced constipation; T38.0X5A Adverse effect of glucocorticoids and synthetic analogues, initial encounter; T40.605A Adverse effect of unspecified narcotics, initial encounter; Z79.891 Long term (current) use of opiate analgesic; Z85.048 Personal history of other malignant neoplasm of rectum, rectosigmoid junction, and anus; Z93.3 Colostomy status; Z79.899 Other long term (current) drug therapy; Z68.29 Body mass index [BMI] 29.0-29.9, adult
CPT/HCPCS: 36415; 71010; 74000; 74022; 74177; 76700; 80053; 81001; 82272; 83605; 83690; 83735; 84100; 84145; 84484; 85025; 85610; 86078; 86850; 86900; 86923; 87040; 87046; 87086; 87324; 87400; 87899; 93005; 96361; 96374; 96375; 96376; J0744; J1170; J1644; J1650; J2405; J3370; J7030; J7040; P9016

== ENCOUNTER 2017-10-04 22:29 | Inpatient (IN) | payer BC, MEDICAID ==
[~2017-10-04] VITALS: Ht 167.6 cm; Wt 79.9 kg
[~2017-10-04 22:29] MED LIST changes: +FERR-36 PO; +METR500T PO; +SUCR1TAB33 PO; +VANC1VIA3 PO
[2017-10-04] MEDS ORDERED: ASPIRIN 81 MG TABLET CHEW PO ONE (23:00)
[2017-10-04] MEDS ORDERED: SODIUM CHLORIDE FLUSH 10ML SYR IVF ONE (23:00)
[2017-10-04] MEDS ORDERED: SODIUM CHLORIDE 0.9% 1,000ML IVBOLUS ONE (23:00)
[2017-10-04 23:26] LABS: MEAN CORPUSCULAR HEMOGLOBIN 27.4 pg (27.5-34.5); MEAN CORPUSCULAR HGB CONC 32.6 g/dL (33.2-36.2); MEAN CORPUSCULAR VOLUME 84.2 fL (81-97); MEAN PLATELET VOLUME 6.7 fL (7.4-10.4); PLATELET COUNT 198 x10^3/uL (130-400); RED BLOOD COUNT 2.22 x10^6/uL (4.38-5.82); RED CELL DISTRIBUTION WIDTH 21.5 % (9.4-14.8)
[2017-10-04] MEDS ORDERED: ASPIRIN 81 MG TABLET CHEW ONE (23:26)
[2017-10-04 23:28] LABS: INTERNATIONAL NORMALIZED RATIO 1.21 (0.93-1.1); PROTHROMBIN TIME 12.5 Seconds (9.6-11.5)
[2017-10-04 23:29] LABS: MD YES
[2017-10-04 23:32] LABS: ALANINE AMINOTRANSFERASE 53 U/L (12-78); ALBUMIN 2.2 g/dL (3.4-5.0); ANION GAP 9 mmol/L (5-15); CALCIUM 7.9 mg/dL (8.5-10.1); CHLORIDE 91 mmol/L (98-107); CREATININE 0.26 mg/dL (0.7-1.3)
[2017-10-04 23:36] LABS: ALKALINE PHOSPHATASE 957 U/L (45-117); BILIRUBIN,TOTAL 1.2 mg/dL (0.2-1.0); TOTAL PROTEIN 5.5 g/dL (6.4-8.2); TROPONIN I < 0.015 ng/mL (0.000-0.045)
[2017-10-04 23:44] LABS: ANISOCYTOSIS 1+; BANDS%(MANUAL) 15 % (0-7); EOS#(MANUAL) 0.12 x10^3/uL (0.0-0.4); EOS% (MANUAL) 2 % (1-7); LYMPH#(MANUAL) 0.06 x10^3/uL (1-3.4); LYMPHS% (MANUAL) 1 % (22-44); METAMYELOCYTES# (MANUAL) 0.12 x10^3/uL (0-0); METAMYELOCYTES% (MANUAL) 2 % (0-1); MICROCYTOSIS 1+; MONOS#(MANUAL) 0.42 x10^3/uL (0.3-2.7); MONOS% (MANUAL) 7 % (2-9); MYELOCYTES# (MANUAL) 0.06 x10^3/uL (0-0); MYELOCYTES% (MANUAL) 1 % (0-0); REACTIVE LYMPHS # (MANUAL) 0.12 x10^3/uL (0-0); REACTIVE LYMPHS % (MANUAL) 2 % (0-0); SEGS% (MANUAL) 70 % (42-75)
[2017-10-04 23:45] LABS: OVALOCYTES 1+; POLYCHROMASIA 1+; TEAR DROPS 1+
[2017-10-04 23:50] LABS: <PLATELET ESTIMATE> ADEQUATE; <PLT MORPHOLOGY> NORMAL PLT MORPH
[2017-10-05] VITALS (13 sets, daily range): BP systolic 101–124; BP diastolic 61–72
[2017-10-05] MEDS ORDERED: ACETAMINOPHEN 500 MG TABLET PO ONE (00:05)
[2017-10-05 00:07] LABS: CULTURE INDICATED? YES; MICROSCOPIC INDICATED
[2017-10-05] MEDS ORDERED: OMNIPAQUE 350 MG/ML, 100ML BOTTLE ONE (00:11)
[2017-10-05] MEDS ORDERED: ACETAMINOPHEN 500 MG TABLET ONE (00:24)
[2017-10-05] MEDS ORDERED: PIPERACILLIN/TAZO/PMX 3.375GM 50 ML ONE (00:24)
[2017-10-05] MEDS ORDERED: VANCOMYCIN PER PHARMACY MC PRN (00:30)
[2017-10-05] MEDS ORDERED: VANCOMYCIN 1,500 MG in SODIUM CHLORIDE 0.9% 250 ML IV ONE (00:30)
[2017-10-05] MEDS ORDERED: PIPERACILLIN/TAZO/PMX 3.375GM 50 ML IV ONE (00:30)
[2017-10-05] MEDS ORDERED: MORPHINE SULFATE 4 MG/ML, 1ML ONE (01:08)
[2017-10-05] MEDS ORDERED: MORPHINE SULFATE 4 MG/ML, 1ML IVPush ONE (01:30)
[2017-10-05] MEDS ORDERED: PANTOPRAZOLE 80 MG in SODIUM CHLORIDE 0.9% 50 ML IVPB ONE (01:37)
[2017-10-05] MEDS ORDERED: PANTOPRAZOLE 80 MG in SODIUM CHLORIDE 0.9% 100 ML IV SCH (01:37)
[2017-10-05] MEDS ORDERED: ONDANSETRON ODT 4 MG PO PRN (03:30)
[2017-10-05] MEDS ORDERED: ACETAMINOPHEN 325 MG TABLET PO PRN (03:30)
[2017-10-05] MEDS ORDERED: ONDANSETRON 2MG/ML, 2ML IVPush PRN (03:30)
[2017-10-05] MEDS ORDERED: POLYETHYLENE GLYCOL 17 GM PACKET PO PRN (03:30)
[2017-10-05] MEDS ORDERED: PROMETHAZINE 25 MG/ML, 1ML IM PRN (03:30)
[2017-10-05] MEDS ORDERED: ENALAPRILAT 1.25 MG/ML, 2ML IVPush PRN (03:30)
[2017-10-05] MEDS: PANTOPRAZOLE 80 MG in SODIUM CHLORIDE 0.9% 100 ML IV SCH ×3 (04:30→23:25)
[2017-10-05] MEDS: NS + 20MEQ KCL 1,000 ML IV SCH ×3 (04:31→23:25)
[2017-10-05] MEDS ORDERED: ENOXAPARIN 40 MG/0.4 ML SQ SCH (05:30)
[2017-10-05] MEDS ORDERED: OMEPRAZOLE 20 MG CAPSULE.DR PO SCH (07:30)
[2017-10-05] MEDS: SUCRALFATE 1 GM TABLET PO SCH ×2 (08:00→17:00)
[2017-10-05] MEDS: HYDROmorphone 1 MG/ML, 1ML IV PRN ×2 (08:07→08:39)
[2017-10-05] MEDS: morphine SULFATE 60 MG TABLET.ER PO SCH ×2 (09:00→23:06)
[2017-10-05] MEDS: SENNA/DOCUSATE TABLET PO SCH ×2 (09:00→09:03)
[2017-10-05] MEDS: LUBIPROSTONE 8 MCG CAPSULE PO SCH ×2 (09:02→21:12)
[2017-10-05] MEDS: FERROUS SULFATE 325 MG TABLET PO SCH ×3 (09:02→17:31)
[2017-10-05] MEDS: DEXAMETHASONE 1 MG TABLET PO SCH ×2 (09:03→17:32)
[2017-10-05 11:33] LABS: MEAN CORPUSCULAR HEMOGLOBIN 28.3 pg (27.5-34.5); MEAN CORPUSCULAR HGB CONC 33.3 g/dL (33.2-36.2); MEAN PLATELET VOLUME 6.8 fL (7.4-10.4); PLATELET COUNT 178 x10^3/uL (130-400); RED BLOOD COUNT 2.94 x10^6/uL (4.38-5.82); RED CELL DISTRIBUTION WIDTH 17.9 % (9.4-14.8)
[2017-10-05 11:58] LABS: MD YES
[2017-10-05 12:01] LABS: BAND#(MANUAL) 2.18 x10^3/uL; BANDS%(MANUAL) 34 % (0-7); EOS#(MANUAL) 0.06 x10^3/uL (0.0-0.4); EOS% (MANUAL) 1 % (1-7); LYMPH#(MANUAL) 0.38 x10^3/uL (1-3.4); LYMPHS% (MANUAL) 6 % (22-44); METAMYELOCYTES# (MANUAL) 0.06 x10^3/uL (0-0); METAMYELOCYTES% (MANUAL) 1 % (0-1); MONOS#(MANUAL) 0.51 x10^3/uL (0.3-2.7); MONOS% (MANUAL) 8 % (2-9); MYELOCYTES# (MANUAL) 0.06 x10^3/uL (0-0); MYELOCYTES% (MANUAL) 1 % (0-0); NRBC % (MANUAL) 1 % (0-1); SEG#(MANUAL) 3.14 x10^3/uL (1.8-6.8); SEGS% (MANUAL) 49 % (42-75)
[2017-10-05 12:03] LABS: <PLATELET ESTIMATE> ADEQUATE; <PLT MORPHOLOGY> NORMAL PLT MORPH; ANISOCYTOSIS 1+; POLYCHROMASIA 1+
[2017-10-05] MEDS: VANCOMYCIN 50 MG/ML ORAL SUSP PO SCH ×2 (12:38→21:14)
[2017-10-05] MEDS: morphine SULFATE 15 MG TAB.IR PO PRN ×2 (12:47→21:13)
[2017-10-06 00:21] VITALS: BP 121/75
[2017-10-06] MEDS: HYDROmorphone 1 MG/ML, 1ML IV PRN ×6 (00:28→21:30)
[2017-10-06 02:11] VITALS: BP 119/77
[2017-10-06 05:41] LABS: MEAN CORPUSCULAR HEMOGLOBIN 28.9 pg (27.5-34.5); MEAN CORPUSCULAR HGB CONC 33.7 g/dL (33.2-36.2); MEAN CORPUSCULAR VOLUME 85.7 fL (81-97); MEAN PLATELET VOLUME 6.3 fL (7.4-10.4); PLATELET COUNT 184 x10^3/uL (130-400); RED CELL DISTRIBUTION WIDTH 18.8 % (9.4-14.8)
[2017-10-06 05:54] LABS: ALANINE AMINOTRANSFERASE 35 U/L (12-78); ALBUMIN 1.9 g/dL (3.4-5.0); ANION GAP 9 mmol/L (5-15); BILIRUBIN, DIRECT 0.5 mg/dL (0.1-0.2); CALCIUM 7.7 mg/dL (8.5-10.1); CHLORIDE 100 mmol/L (98-107); CREATININE 0.18 mg/dL (0.7-1.3); GAMMA GLUTAMYL TRANSPEPTIDASE 157 U/L (15-85)
[2017-10-06 05:56] LABS: ALKALINE PHOSPHATASE 833 U/L (45-117); BILIRUBIN,INDIRECT 0.5 mg/dL (0.0-2.0)
[2017-10-06 06:44] LABS: MD YES
[2017-10-06 06:46] VITALS: BP 119/72
[2017-10-06 06:49] LABS: ANISOCYTOSIS 1+; BAND#(MANUAL) 1.19 x10^3/uL; BANDS%(MANUAL) 18 % (0-7); LYMPH#(MANUAL) 1.32 x10^3/uL (1-3.4); LYMPHS% (MANUAL) 20 % (22-44); MONOS#(MANUAL) 0.66 x10^3/uL (0.3-2.7); MONOS% (MANUAL) 10 % (2-9); SEG#(MANUAL) 3.43 x10^3/uL (1.8-6.8); SEGS% (MANUAL) 52 % (42-75)
[2017-10-06 06:50] LABS: <PLATELET ESTIMATE> ADEQUATE; <PLT MORPHOLOGY> NORMAL PLT MORPH; POLYCHROMASIA 1+
[2017-10-06] MEDS ORDERED: PROPOFOL 10 MG/ML, 20ML ONE (07:20)
[2017-10-06] MEDS ORDERED: ALBUTEROL/IPRATROPIUM 2.5MG/0.5MG, 3 ML NPPB PRN (08:00)
[2017-10-06] MEDS ORDERED: METOPROLOL 1 MG/ML, 5ML IV PRN (08:00)
[2017-10-06] MEDS ORDERED: FENTANYL PF 100 MCG/2ML IV PRN (08:00)
[2017-10-06] MEDS ORDERED: OXYcodone 5 MG/5 ML ORAL.SOL UDC PO PRN (08:00)
[2017-10-06] MEDS ORDERED: morphine SULFATE 10 MG/ML, 1ML IV PRN (08:00)
[2017-10-06] MEDS ORDERED: ONDANSETRON 2MG/ML, 2ML IVPush PRN (08:00)
[2017-10-06] MEDS ORDERED: hydrALAzine 20 MG/ML, 1ML IV PRN (08:00)
[2017-10-06] MEDS ORDERED: MEPERIDINE/PF 25MG/0.5ML IVPush PRN (08:00)
[2017-10-06] MEDS ORDERED: MIDAZOLAM 1 MG/ML, 2ML IV PRN (08:00)
[2017-10-06] MEDS ORDERED: PROMETHAZINE 25 MG/ML, 1ML IV PRN (08:00)
[2017-10-06] MEDS: SENNA/DOCUSATE TABLET PO SCH (09:00)
[2017-10-06] MEDS: DEXAMETHASONE 1 MG TABLET PO SCH ×2 (09:36→16:42)
[2017-10-06] MEDS: FERROUS SULFATE 325 MG TABLET PO SCH ×3 (09:36→16:41)
[2017-10-06] MEDS: LUBIPROSTONE 8 MCG CAPSULE PO SCH ×2 (09:36→20:33)
[2017-10-06] MEDS: VANCOMYCIN 50 MG/ML ORAL SUSP PO SCH ×2 (09:36→20:35)
[2017-10-06] MEDS: NS + 20MEQ KCL 1,000 ML IV SCH ×2 (12:13→21:57)
[2017-10-06] MEDS: morphine SULFATE 60 MG TABLET.ER PO SCH ×2 (12:13→23:28)
[2017-10-06 12:16] VITALS: BP 123/78
[2017-10-06] MEDS: morphine SULFATE 15 MG TAB.IR PO PRN (20:34)
[2017-10-06 20:35] VITALS: BP 127/76
[2017-10-07] MEDS: HYDROmorphone 1 MG/ML, 1ML IV PRN (00:41)
[2017-10-07 03:53] VITALS: BP 128/76
[2017-10-07] MEDS: morphine SULFATE 15 MG TAB.IR PO PRN ×4 (05:50→21:55)
[2017-10-07 08:02] VITALS: BP 129/81
[2017-10-07] MEDS: FERROUS SULFATE 325 MG TABLET PO SCH ×3 (08:03→17:36)
[2017-10-07] MEDS: NS + 20MEQ KCL 1,000 ML IV SCH ×2 (08:03→17:37)
[2017-10-07] MEDS: LUBIPROSTONE 8 MCG CAPSULE PO SCH ×2 (08:03→20:38)
[2017-10-07] MEDS: DEXAMETHASONE 1 MG TABLET PO SCH ×2 (08:03→17:36)
[2017-10-07] MEDS: VANCOMYCIN 50 MG/ML ORAL SUSP PO SCH ×2 (08:03→20:38)
[2017-10-07] MEDS: SENNA/DOCUSATE TABLET PO SCH (08:05)
[2017-10-07] MEDS: morphine SULFATE 60 MG TABLET.ER PO SCH ×2 (11:34→23:51)
[2017-10-07 13:51] VITALS: BP 123/72
[2017-10-07 20:13] VITALS: BP 132/52
[2017-10-08 00:31] VITALS: BP 132/79
[2017-10-08] MEDS: morphine SULFATE 15 MG TAB.IR PO PRN ×3 (01:44→17:11)
[2017-10-08] MEDS: NS + 20MEQ KCL 1,000 ML IV SCH ×2 (04:23→17:11)
[2017-10-08 07:58] VITALS: BP 129/72
[2017-10-08] MEDS: DEXAMETHASONE 1 MG TABLET PO SCH ×2 (08:08→17:11)
[2017-10-08] MEDS: FERROUS SULFATE 325 MG TABLET PO SCH ×3 (08:08→17:11)
[2017-10-08] MEDS: VANCOMYCIN 50 MG/ML ORAL SUSP PO SCH ×2 (08:09→22:37)
[2017-10-08] MEDS: SENNA/DOCUSATE TABLET PO SCH (08:09)
[2017-10-08] MEDS: LUBIPROSTONE 8 MCG CAPSULE PO SCH ×2 (08:09→22:37)
[2017-10-08] MEDS: morphine SULFATE 60 MG TABLET.ER PO SCH ×2 (11:53→22:35)
[2017-10-08 12:41] VITALS: BP 128/77
[2017-10-08 13:19] VITALS: BP 121/77
[2017-10-08 20:32] VITALS: BP 118/77
[2017-10-09] MEDS: morphine SULFATE 15 MG TAB.IR PO PRN ×4 (00:09→21:41)
[2017-10-09 00:20] VITALS: BP 117/73
[2017-10-09] MEDS: NS + 20MEQ KCL 1,000 ML IV SCH ×2 (03:40→17:12)
[2017-10-09 07:39] VITALS: BP 121/71
[2017-10-09] MEDS: VANCOMYCIN 50 MG/ML ORAL SUSP PO SCH ×2 (08:52→21:41)
[2017-10-09] MEDS: DEXAMETHASONE 1 MG TABLET PO SCH ×2 (08:52→17:12)
[2017-10-09] MEDS: SENNA/DOCUSATE TABLET PO SCH (08:52)
[2017-10-09] MEDS: FERROUS SULFATE 325 MG TABLET PO SCH ×3 (08:52→17:12)
[2017-10-09] MEDS: LUBIPROSTONE 8 MCG CAPSULE PO SCH ×2 (08:52→21:41)
[2017-10-09 08:57] LABS: BASOPHILS # (AUTO) 0.02 x10^3/uL (0-0.1); BASOPHILS % (AUTO) 0 % (0-1); EOSINOPHILS # (AUTO) 0.19 x10^3/uL (0-0.4); EOSINOPHILS % (AUTO) 3 % (1-7); LYMPHOCYTES # (AUTO) 0.67 x10^3/uL (1-3.4); LYMPHOCYTES % (AUTO) 11 % (22-44); MD NO; MEAN CORPUSCULAR HEMOGLOBIN 28.2 pg (27.5-34.5); MEAN CORPUSCULAR HGB CONC 33.1 g/dL (33.2-36.2); MEAN CORPUSCULAR VOLUME 85.2 fL (81-97); MEAN PLATELET VOLUME 6.4 fL (7.4-10.4); MONOCYTES # (AUTO) 0.61 x10^3/uL (0.2-0.8); MONOCYTES % (AUTO) 10 % (2-9); NEUTROPHILS # (AUTO) 4.82 x10^3/uL (1.8-6.8); NEUTROPHILS % (AUTO) 76 % (42-75); PLATELET COUNT 190 x10^3/uL (130-400); RED BLOOD COUNT 2.95 x10^6/uL (4.38-5.82); RED CELL DISTRIBUTION WIDTH 18.1 % (9.4-14.8)
[2017-10-09] MEDS: morphine SULFATE 60 MG TABLET.ER PO SCH ×2 (11:59→23:33)
[2017-10-09] MEDS ORDERED: VANC1VIA3 PO (12:35)
[2017-10-09 14:14] VITALS: BP 115/73
[2017-10-09 18:46] VITALS: BP 120/76
[2017-10-10] MEDS: morphine SULFATE 15 MG TAB.IR PO PRN ×3 (02:13→20:37)
[2017-10-10 02:37] VITALS: BP 122/79
[2017-10-10] MEDS: NS + 20MEQ KCL 1,000 ML IV SCH ×2 (03:25→14:28)
[2017-10-10 07:48] VITALS: BP 134/71
[2017-10-10] MEDS: SENNA/DOCUSATE TABLET PO SCH (09:00)
[2017-10-10] MEDS: LUBIPROSTONE 8 MCG CAPSULE PO SCH ×2 (09:01→20:36)
[2017-10-10] MEDS: DEXAMETHASONE 1 MG TABLET PO SCH ×2 (09:01→17:13)
[2017-10-10] MEDS: FERROUS SULFATE 325 MG TABLET PO SCH ×3 (09:01→17:13)
[2017-10-10] MEDS: VANCOMYCIN 50 MG/ML ORAL SUSP PO SCH ×2 (09:02→20:36)
[2017-10-10] MEDS: morphine SULFATE 60 MG TABLET.ER PO SCH ×2 (11:00→23:00)
[2017-10-10 14:18] VITALS: BP 118/73
[2017-10-10 20:07] VITALS: BP 116/72
[2017-10-11] MEDS: NS + 20MEQ KCL 1,000 ML IV SCH ×4 (00:31→22:41)
[2017-10-11] MEDS: morphine SULFATE 15 MG TAB.IR PO PRN ×4 (01:27→20:39)
[2017-10-11 02:03] VITALS: BP 122/80
[2017-10-11 08:56] VITALS: BP 128/80
[2017-10-11] MEDS: DEXAMETHASONE 1 MG TABLET PO SCH ×2 (09:14→18:06)
[2017-10-11] MEDS: FERROUS SULFATE 325 MG TABLET PO SCH ×3 (09:14→18:07)
[2017-10-11] MEDS: LUBIPROSTONE 8 MCG CAPSULE PO SCH ×2 (09:14→20:39)
[2017-10-11] MEDS: SENNA/DOCUSATE TABLET PO SCH (09:15)
[2017-10-11] MEDS: VANCOMYCIN 50 MG/ML ORAL SUSP PO SCH ×2 (09:17→20:39)
[2017-10-11] MEDS: morphine SULFATE 60 MG TABLET.ER PO SCH ×2 (11:00→22:41)
[2017-10-11 13:10] VITALS: BP 118/77
[2017-10-11 20:37] VITALS: BP 119/73
[2017-10-12 02:00] VITALS: BP 121/74
[2017-10-12] MEDS: morphine SULFATE 15 MG TAB.IR PO PRN ×3 (05:49→19:29)
[2017-10-12] MEDS: LUBIPROSTONE 8 MCG CAPSULE PO SCH ×2 (09:28→19:30)
[2017-10-12] MEDS: VANCOMYCIN 50 MG/ML ORAL SUSP PO SCH ×2 (09:28→19:30)
[2017-10-12] MEDS: FERROUS SULFATE 325 MG TABLET PO SCH ×3 (09:29→17:26)
[2017-10-12] MEDS: SENNA/DOCUSATE TABLET PO SCH (09:29)
[2017-10-12] MEDS: DEXAMETHASONE 1 MG TABLET PO SCH ×2 (09:29→17:27)
[2017-10-12 09:49] VITALS: BP 116/71
[2017-10-12] MEDS: morphine SULFATE 60 MG TABLET.ER PO SCH ×2 (10:15→23:00)
[2017-10-12] MEDS: NS + 20MEQ KCL 1,000 ML IV SCH ×3 (10:16→22:06)
[2017-10-12 14:04] VITALS: BP 119/73
[2017-10-12 19:33] VITALS: BP 126/75
[2017-10-13 01:17] VITALS: BP 120/76
[2017-10-13] MEDS: morphine SULFATE 15 MG TAB.IR PO PRN ×3 (06:14→19:18)
[2017-10-13 07:17] VITALS: BP 120/71
[2017-10-13] MEDS: NS + 20MEQ KCL 1,000 ML IV SCH ×2 (08:16→16:56)
[2017-10-13] MEDS: VANCOMYCIN 50 MG/ML ORAL SUSP PO SCH ×2 (08:17→20:50)
[2017-10-13] MEDS: FERROUS SULFATE 325 MG TABLET PO SCH ×3 (08:17→16:56)
[2017-10-13] MEDS: DEXAMETHASONE 1 MG TABLET PO SCH ×2 (08:17→16:56)
[2017-10-13] MEDS: LUBIPROSTONE 8 MCG CAPSULE PO SCH ×2 (08:17→20:50)
[2017-10-13] MEDS: SENNA/DOCUSATE TABLET PO SCH (08:34)
[2017-10-13] MEDS: morphine SULFATE 60 MG TABLET.ER PO SCH ×2 (10:49→23:00)
[2017-10-13 12:33] VITALS: BP 120/81
[2017-10-13 19:20] VITALS: BP 121/70
[2017-10-14 01:10] VITALS: BP 124/72
[2017-10-14] MEDS: morphine SULFATE 15 MG TAB.IR PO PRN ×4 (03:11→17:58)
[2017-10-14] MEDS: NS + 20MEQ KCL 1,000 ML IV SCH ×3 (03:38→23:22)
[2017-10-14] MEDS: DEXAMETHASONE 1 MG TABLET PO SCH ×2 (07:06→17:58)
[2017-10-14 07:50] VITALS: BP 122/78
[2017-10-14] MEDS: FERROUS SULFATE 325 MG TABLET PO SCH ×3 (08:00→17:00)
[2017-10-14] MEDS: LUBIPROSTONE 8 MCG CAPSULE PO SCH ×2 (09:29→20:27)
[2017-10-14] MEDS: VANCOMYCIN 50 MG/ML ORAL SUSP PO SCH ×2 (09:29→20:27)
[2017-10-14] MEDS: SENNA/DOCUSATE TABLET PO SCH (09:29)
[2017-10-14] MEDS: morphine SULFATE 60 MG TABLET.ER PO SCH ×2 (11:00→22:57)
[2017-10-14 14:00] VITALS: BP 117/74
[2017-10-14 18:26] VITALS: BP 125/74
[2017-10-15] MEDS: morphine SULFATE 15 MG TAB.IR PO PRN ×4 (01:17→17:29)
[2017-10-15 02:11] VITALS: BP 122/80
[2017-10-15] MEDS: FERROUS SULFATE 325 MG TABLET PO SCH ×3 (08:00→17:00)
[2017-10-15 08:09] VITALS: BP 125/78
[2017-10-15] MEDS: VANCOMYCIN 50 MG/ML ORAL SUSP PO SCH ×2 (08:27→21:36)
[2017-10-15] MEDS: SENNA/DOCUSATE TABLET PO SCH (08:27)
[2017-10-15] MEDS: LUBIPROSTONE 8 MCG CAPSULE PO SCH ×2 (08:27→21:36)
[2017-10-15] MEDS: DEXAMETHASONE 1 MG TABLET PO SCH ×2 (08:27→17:25)
[2017-10-15 08:40] LABS: ALANINE AMINOTRANSFERASE 26 U/L (12-78); ANION GAP 6 mmol/L (5-15); CALCIUM 7.1 mg/dL (8.5-10.1); CHLORIDE 99 mmol/L (98-107)
[2017-10-15 08:43] LABS: ALKALINE PHOSPHATASE 658 U/L (45-117); BILIRUBIN,TOTAL 0.5 mg/dL (0.2-1.0); TOTAL PROTEIN 5.1 g/dL (6.4-8.2)
[2017-10-15 08:44] LABS: CREATININE < 0.15 mg/dL (0.7-1.3)
[2017-10-15 08:48] LABS: BASOPHILS # (AUTO) 0.05 x10^3/uL (0-0.1); BASOPHILS % (AUTO) 1 % (0-1); EOSINOPHILS # (AUTO) 0.15 x10^3/uL (0-0.4); EOSINOPHILS % (AUTO) 2 % (1-7); LYMPHOCYTES # (AUTO) 1.44 x10^3/uL (1-3.4); LYMPHOCYTES % (AUTO) 15 % (22-44); MD NO; MEAN CORPUSCULAR HEMOGLOBIN 28.5 pg (27.5-34.5); MEAN CORPUSCULAR HGB CONC 32.9 g/dL (33.2-36.2); MEAN CORPUSCULAR VOLUME 86.6 fL (81-97); MEAN PLATELET VOLUME 6.3 fL (7.4-10.4); MONOCYTES # (AUTO) 0.71 x10^3/uL (0.2-0.8); MONOCYTES % (AUTO) 7 % (2-9); NEUTROPHILS # (AUTO) 7.35 x10^3/uL (1.8-6.8); NEUTROPHILS % (AUTO) 76 % (42-75); PLATELET COUNT 206 x10^3/uL (130-400); RED BLOOD COUNT 2.77 x10^6/uL (4.38-5.82)
[2017-10-15] MEDS ORDERED: GADOBUTROL 7.5 MMOL/7.5 ML PFS ONE (10:20)
[2017-10-15] MEDS: morphine SULFATE 60 MG TABLET.ER PO SCH ×2 (11:00→23:00)
[2017-10-15 15:21] VITALS: BP 121/74
[2017-10-15 21:31] VITALS: BP 129/81
[2017-10-16 02:09] VITALS: BP 125/80
[2017-10-16] MEDS: morphine SULFATE 15 MG TAB.IR PO PRN ×3 (02:11→14:37)
[2017-10-16 06:50] VITALS: BP 128/75
[2017-10-16] MEDS: VANCOMYCIN 50 MG/ML ORAL SUSP PO SCH (09:47)
[2017-10-16] MEDS: LUBIPROSTONE 8 MCG CAPSULE PO SCH (09:47)
[2017-10-16] MEDS: SENNA/DOCUSATE TABLET PO SCH (09:47)
[2017-10-16] MEDS: FERROUS SULFATE 325 MG TABLET PO SCH ×2 (09:47→11:48)
[2017-10-16] MEDS: DEXAMETHASONE 1 MG TABLET PO SCH (09:47)
[2017-10-16] MEDS: morphine SULFATE 60 MG TABLET.ER PO SCH (11:48)
[2017-10-16 13:00] VITALS: BP 122/73
== END 2017-10-16 16:19 | DRG 872 ==
LOC: ED 23:59 → EDIP 10-05 02:21 → 5SO 10-05 02:58
PROVIDERS: ADMIT Family Medicine; ATTEND Family Medicine
PROC: 30233N1 Transfusion of Nonautologous Red Blood Cells into Peripheral Vein, Percutaneous Approach (ICD-10-PCS; principal; 2017-10-05)
PROC: 0DJ08ZZ Inspection of Upper Intestinal Tract, Via Natural or Artificial Opening Endoscopic (ICD-10-PCS; 2017-10-06)
DX: A41.9 Sepsis, unspecified organism (principal); C79.31 Secondary malignant neoplasm of brain; E22.2 Syndrome of inappropriate secretion of antidiuretic hormone; E46 Unspecified protein-calorie malnutrition; C19 Malignant neoplasm of rectosigmoid junction; D62 Acute posthemorrhagic anemia; K92.2 Gastrointestinal hemorrhage, unspecified; C20 Malignant neoplasm of rectum; K21.9 Gastro-esophageal reflux disease without esophagitis; F17.210 Nicotine dependence, cigarettes, uncomplicated; G47.33 Obstructive sleep apnea (adult) (pediatric); G50.0 Trigeminal neuralgia; G89.3 Neoplasm related pain (acute) (chronic); K52.9 Noninfective gastroenteritis and colitis, unspecified; N30.90 Cystitis, unspecified without hematuria; Z51.5 Encounter for palliative care; F41.9 Anxiety disorder, unspecified; G56.00 Carpal tunnel syndrome, unspecified upper limb; M54.5 Low back pain; R01.1 Cardiac murmur, unspecified; R74.8 Abnormal levels of other serum enzymes; R20.0 Anesthesia of skin; K59.00 Constipation, unspecified; B96.89 Other specified bacterial agents as the cause of diseases classified elsewhere; Z85.048 Personal history of other malignant neoplasm of rectum, rectosigmoid junction, and anus; Z68.28 Body mass index [BMI] 28.0-28.9, adult; Z86.73 Personal history of transient ischemic attack (TIA), and cerebral infarction without residual deficits; Z93.3 Colostomy status
CPT/HCPCS: 36415; 70553; 71045; 71275; 74177; 80053; 81001; 82247; 82248; 82977; 83605; 84075; 84080; 84145; 84484; 85014; 85018; 85025; 85610; 85730; 86850; 86900; 86923; 87040; 87086; 93005; 96361; 96374; A9585; J1170; J2543; J2704; J3370; J3480; Q9967; C9113; J7030; P9016